=== PATIENT | male | born 1955 | race Caucasian/White ===

== ENCOUNTER 2016-10-24 14:58 | Emergency (ER) | payer OTHER ==
[~2016-10-24] VITALS: Ht 172.7 cm; Wt 97.5 kg
[2016-10-24] MEDS ORDERED: AZELASTINE137 MCG/Ac (15:11)
[2016-10-24] MEDS ORDERED: FLONASE 50 MCG16 GM (15:12)
[2016-10-24] MEDS ORDERED: ASPIRIN 81MG TA81 MG PO (15:12)
[2016-10-24] MEDS ORDERED: PEPCID 20MG TAB20 MG PO (15:13)
--- NOTE | 2016-10-24 15:36 | Emergency Room Report ---
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 N Clinical Suspician of Infection? N Mental Status: 1 - Regular (Normal Baseline) Sepsis Risk:Low Sepsis Risk Have you (or family members/close friends) recently traveled outside the [place]? N If Yes, where/when: Have you had exposure to infectious disease within the past month? N TB? Other? Specify: Fell accidentally this morning, neg LOC, PCP Dr. King ordered L shoulder xray and CT cervical spine, which were read as normal by radiology; patient with intense muscle spasm while in car, and returned to hospital for relief. Took Ibuprofen 600 mg COMPLIANCE REVIEW SPECIALIST. Pain is on the left, with no lito neurological symptoms reported. ALLERGIES Coded Allergies: No Known Allergies (04/25/16) Home Medications Reported Medications AZELASTINE HCL (Azelastine HCl) 137 MCG NA BID #30 ASPIRIN (Aspirin) 81 MG PO DAILY Fluticasone Propionate (Flonase 50 Mcg Nasal [place]) 1 SPRAY NA BID #48 Famotidine (Pepcid 20MG Tablet) 20 MG PO BID History Medical History General CAD? No Angina: No [place]: No Hypertension? No Hyperlipidemia? Yes CHF? No DVT? No PE? No COPD? No Asthma? No Anemia? Yes GERD? No Gastric ulcers? No GI Bleed? No Hernia? No Thyroid Problems? No Hypothyroidism? No CVA? No Seizures? No Diabetes? No Renal Insuffiency? No End Stage Renal Disease? No UTI? No Stones? No BPH? No GB Disease: No Nephritic Syndrome? No Asplenia? No Hepatitis? No Sickle Cell Disease? No Arthritis? No Migraines? No Cataracts? No Glaucoma? No MRSA? No HIV? No TB? No Anxiety? No Depression? No Cancer? No More? No Immunization Hx DT/Tetanus Unknown Surgical Hx Previous Surgery?Y RIGHT KNEE Social History Smoking Hx Smoker: Never Smoker Tobacco: No Are you/the child exposed to second-hand smoke: No Alcohol Alcohol: No Review of Systems All Other Systems Reviewed and Negative Musculoskeletal see HPI Psychiatric/Neurological denies no symptoms reported Physical Exam Vital Signs Vital Signs Date Time Temp Pulse Resp B/P Pulse O2 O2 Flow FiO2 Ox Delivery Rate 10/24 1502 97.9 63 20 159/92 97 General Appearance normal appearance, WD/WN, no apparent distress Neck normal inspection, non-tender, supple, full range of motion Respiratory Status Yes: trachea midline, chest symmetrical, tender on palpation. No: respiratory distress, non tender chest (L latissimus dorsi spasm), use of accessory muscles, pain on inspiration, productive cough. Lung Sounds bilateral: normal breath sounds, lungs clear. Cardiovascular normal exam, regular rate/rhythm, no peripheral edema, no gallop, no JVD, no murmur, no rub, normal peripheral pulses Back no vertebral tenderness, muscle spasm (trigger point, L lat) Extremities normal range of motion, subjective tenderness to shoulder, but no lito tenderness over rotator cuff noted; has good active and passive ROM, fully sensate r/u/m/ax nerves as checked, no asymmetry; clavicle nontender to palpation. Neurologic alert, normal exam, no motor/sensory deficits, oriented x 3 Reflexes Reflexes normal Yes DTR 2+ tricep (R), 2+ tricep (L) Skin intact, normal color, warm/dry Medical Decision Making LABS/Meds/Orders Pt receiving controlled substance in ED? No Results/Orders Current Medication Orders Sig/Kelly Start time Last Medication Dose Route Stop Time Status Admin Cyclobenzaprine HCl 10 MG ONCE ONE 10/24 1545 AC 10/24 PO 10/24 1546 1539 Cyclobenzaprine HCl 0 .STK-MED ONE 10/24 1538 DC PO Progress ED Progress Notes Date 10/24/16 Time 1539 Comment results of L shoulder xray and CT cervical spine reviewed, overall neg acute findings. Departure Departure Time of Disposition 1539 Disposition DC Home or Self Care(routine) Clinical Impression Primary Impression: Spasm of thoracic back muscle Condition STABLE Referrals Bernard King MD (Family) Patient Instructions DI for Musculoskeletal Pain Additional Instructions See Dr. King for follow up in one to two days for recheck; Rx Flexeril; recommend taking Ibuprofen 200 mg by mouth every six hours for the next 24 hours , then switch to plain Tylenol. Discharge Counseling Counseled pt/family regarding diagnosis, test results, medications/RX, home care, follow up needs Prescriptions Current Visit Scripts Cyclobenzaprine Hcl (Flexeril) 5 MG PO TIDP PRN spasm #15 TAB ED Critical Care Critical Care No at 7840
[2016-10-24] MEDS ORDERED: FLEXERIL10 MG PO (15:40)
[2016-10-24 15:50] VITALS: BP 159/92
== END 2016-10-24 15:51 | disposition home or self-care (01) ==
LOC: ER 14:58
DX: M62.830 Muscle spasm of back (principal); W01.0XXA Fall on same level from slipping, tripping and stumbling without subsequent striking against object, initial encounter; Y92.019 Unspecified place in single-family (private) house as the place of occurrence of the external cause

== ENCOUNTER 2017-06-05 06:23 | Inpatient (IN) | payer OTHER ==
[~2017-06-05] VITALS: Ht 172.7 cm; Wt 100.8 kg
[2017-06-05] VITALS (17 sets, daily range): BP systolic 123–171; BP diastolic 61–96
[~2017-06-05 06:23] MED LIST: ASPIRIN 81MG TA81 MG PO; AZELASTINE137 MCG/Ac; FLEXERIL10 MG PO; FLONASE 50 MCG16 GM; PEPCID 20MG TAB20 MG PO
[2017-06-05] MEDS ORDERED: VIMOVO 20 MG-501 TCP PO (06:41)
--- NOTE | 2017-06-05 06:54 | Emergency Room Report ---
History of Present Illness Time Seen by 0600 Presenting Problem in Triage Pt arrived:Walked Presenting Problem:DIFFUSE ABDOMINAL PAIN LAST NIGHT WITH HOT FLASHES, VOMITING AND DIARRHEA. THIS MORNING PAIN IS RLQ. 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 Y Clinical Suspician of Infection? Y Mental Status: 1 - Regular (Normal Baseline) Sepsis Risk:Low Sepsis Risk Have you (or family members/close friends) recently traveled outside the [place]? N If Yes, where/when: Have you had exposure to infectious disease within the past month? N TB? Other? Specify: Source patient, RN notes reviewed, family, old records Exam Limitations no limitations Comment pt with progressive rt lower abd pain with nausea and dec po Cardiac Chest Pain Chest pain indicative of cardiac No Timing/Duration this evening Severity moderate ALLERGIES Coded Allergies: No Known Allergies (04/25/16) Home Medications Active Scripts Cyclobenzaprine Hcl (Flexeril) 5 MG PO TIDP PRN spasm #15 TAB Prov: 10/24/16 Reported Medications AZELASTINE HCL (Azelastine HCl) 137 MCG NA BID #30 ASPIRIN (Aspirin) 81 MG PO DAILY Fluticasone Propionate (Flonase 50 Mcg Nasal [place]) 1 SPRAY NA BID #48 Famotidine (Pepcid 20MG Tablet) 20 MG PO BID NAPROXEN/ESOMEPRAZOLE MAG (Vimovo Dr 500-20 MG Tablet) 1 TCP PO DAILY #60 History Medical History General CAD? No Angina: No [place]: No Hypertension? No Hyperlipidemia? Yes CHF? No DVT? No PE? No COPD? No Asthma? No Anemia? Yes GERD? No Gastric ulcers? No GI Bleed? No Hernia? No Thyroid Problems? No Hypothyroidism? No CVA? No Seizures? No Diabetes? No Renal Insuffiency? No End Stage Renal Disease? No UTI? No Stones? No BPH? No GB Disease: No Nephritic Syndrome? No Asplenia? No Hepatitis? No Sickle Cell Disease? No Arthritis? No Migraines? No Cataracts? No Glaucoma? No MRSA? No HIV? No TB? No Anxiety? No Depression? No Cancer? No More? No Immunization Hx Ped.Immunizations UTD No DT/Tetanus Unknown Surgical Hx Previous Surgery?Y RIGHT KNEE Social History Smoking Hx Smoker: Never Smoker Tobacco: No Alcohol Alcohol: No Drugs none Review of Systems All Other Systems Reviewed and Negative Constitutional denies fever Eyes denies drainage ENT denies: ear discharge, epistaxis, throat pain. Respiratory denies cough, denies shortness of breath, denies wheezing Cardiovascular denies chest pain, denies syncope Gastrointestinal see HPI, abdominal pain, nausea, vomiting Genitourinary denies: dysuria, frequency, hesitancy, hematuria. Musculoskeletal denies back pain, denies joint pain, denies joint swelling, denies neck pain Skin denies rash Psychiatric/Neurological denies headache, denies seizure Physical Exam Vital Signs Vital Signs Date Time Temp Pulse Resp B/P Pulse O2 O2 Flow FiO2 Ox Delivery Rate 06/05 704 20 06/05 06 99.2 66 14 171/61 98 - WBC >12,000 or <4,000 or 10% bands? 2 or more SIRS Criteria Met? B/P:171/61 MAP:97 Creatinine >2.0? UA output<0.5ml/kg/hr for 2 hrs? Platelet count >100,000? Lactate >2.0mmol/1? INR >1.2 or PTT > than 60 sec? Evidence of Organ Dysfunction? Provider documented clinical suspician of infection? Y Sepsis Criteria Count: 1 Sepsis Risk: Low Sepsis Risk General Appearance no apparent distress Eye Exam - bilateral eye PERRL, bilateral eye EOMI Ear, Nose, Throat normal ENT inspection Neck supple Respiratory Status No: respiratory distress. Lung Sounds bilateral: lungs clear. Cardiovascular regular rate/rhythm Peripheral Pulses Pulses normal Yes Gastrointestinal soft, no organomegaly, no pulsatile mass, no guarding, no rebound, tenderness Extremities normal inspection Strength 4 Upper Ext (L), 4 Upper Ext (R), 4 Lower Ext (L), 4 Lower Ext (R) Neurologic alert, threat monitoring analyst II-XII nml as tested, no motor/sensory deficits Reflexes Reflexes normal No Mental status normal mood/affect Skin intact Medical Decision Making LABS/Meds/Orders Pt receiving controlled substance in ED? No Results/Orders Current Medication Orders Sig/Kelly Start time Last Medication Dose Route Stop Time Status Admin Morphine Sulfate 4 MG ONCE ONE 06/05 700 DC 06/05 IV 06/05 701 07 Promethazine HCl 12.5 MG ONCE ONE 06/05 700 DC 06/05 IV 06/05 0701 0704 Promethazine HCl 0 .STK-MED ONE 06/05 700 DC .ROUTE Sodium Chloride 25 ML ONCE ONE 06/05 700 DC 06/05 IV 06/05 0714 0705 Morphine Sulfate 0 .STK-MED ONE 06/05 659 DC .ROUTE Sodium Chloride 25 ML .STK-MED ONE 06/05 659 DC IV Sodium Chloride 10 ML PRN PRN 06/05 630 AC IV 06/06 630 Orders Procedure Date/time Status DIET-NOTHING BY MOUTH 06/05 B Active Decision to admit 06/[address] SCAN REQ 06/05 630 Complete IV SALINE LOCK 06/05 630 Active URINALYSIS/COMPLETE 06/05 630 Active COMPLETE METABOLIC PANEL 06/05 630 Active CBC WITH AUTO DIFF 06/[address] ABD & PELVIS W/O CONTRAST 06/05 UNK Active XRAY/CT/US XRAY/CT/US CT abdomen, pelvis CT interpretation by discussed w/radiologist Time results known: 719 CT Results abnormal (acute appenditis) Departure Departure Time of Disposition 07 Disposition Still a Patient Clinical Impression Primary Impression: Appendicitis, acute Qualifiers: Acute appendicitis type: with localized peritonitis Qualified Code: K35.3 - Acute appendicitis with localized peritonitis Condition STABLE Referrals Bernard Norwood MD (Family) discussed with dr norwood and dr sharma ED Critical Care Critical Care No at 0721
--- NOTE | 2017-06-05 07:22 | RADIOLOGY REPORT PS360 ---
CT ABD PELVIS W/O CONTRAST CLINICAL INDICATION: Right lower quadrant pain with fever constipation and diarrhea ABD PAIN ORDERING PHYSICIAN: Macarena Maharaj MD PATIENT AGE: 62 years COMPARISON: None TECHNIQUE: Axial images obtained with sagittal and coronal reformats. PROCEDURE: Oral Contrast: None IV Contrast: None . FINDINGS: There is a nonspecific small nodular opacity left lung base posteriorly at 4 mm. Calcified granulomas are also present in the left lower lobe. The liver, gallbladder, spleen, adrenal glands, and pancreas have an unremarkable unenhanced CT appearance. No renal calculi or hydronephrosis. The appendix is enlarged. There is stranding of the periappendiceal fat. Gas is present in the proximal to mid aspect of the appendix surrounding an appendicolith. Gangrenous appendicitis is considered. There is thickening of the lateral, fascia adjacent to the appendix. No free air. No obvious abscess. There is a minimal amount fluid in the pelvis. There is diverticulosis of the sigmoid colon but no evidence of diverticulitis. No acute bony anomalies are evident. Bilateral pars defect is present at L5 with 4 mm anterolisthesis of L5. IMPRESSION: 1. Acute appendicitis. Gas is present in the central aspect of the appendix running appendicolith suspicious for gangrenous appendicitis. No obvious abscess or free air. 2. Diverticulosis. 3. Nonspecific 4 mm nodular opacity left lung base posteriorly. Consider 6 month follow-up
[2017-06-05 07:32] LABS: HEMOGLOBIN 15.5 g/dL (14.1-18.0); LYMPH # 1.1 K/mm3 (0.7-4.5)
[2017-06-05 07:38] LABS: URINE BILIRUBIN - DIPSTICK NEGATIVE (NEG); URINE BLOOD TRACE-INTACT (NEG)
[2017-06-05 07:42] LABS: URINE SQUAMOUS CELLS OCC #/hpf (OCC)
[2017-06-05 07:52] LABS: NEUTROPHILS 89 % (42-76)
--- NOTE | 2017-06-05 08:31 | HISTORY AND PHYSICAL REPORT ---
History of Present Illness Chief Complaint: Abdominal Pain History of Present Illness: Patient is a 62-year-old white male. In the morning of 06/04/17 he developed upper abdominal pain described as a "stomachache". 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 He presented to the emergency department at [facility] where he was seen and evaluated and had a CT scan revealing findings consistent with acute appendicitis. Surgical consultation was obtained. Past Medical History Reports: GERD. Surgical History Previous Surgery?Y RIGHT KNEE Allergies Coded Allergies: No Known Allergies (04/25/16) Medications: Active Scripts Cyclobenzaprine Hcl (Flexeril) 5 MG PO TIDP PRN spasm #15 TAB Prov: 10/24/16 Reported Medications AZELASTINE HCL (Azelastine HCl) 137 MCG NA BID #30 ASPIRIN (Aspirin) 81 MG PO DAILY Fluticasone Propionate (Flonase 50 Mcg Nasal [place]) 1 SPRAY NA BID #48 Famotidine (Pepcid 20MG Tablet) 20 MG PO BID NAPROXEN/ESOMEPRAZOLE MAG (Vimovo Dr 500-20 MG Tablet) 1 TCP PO DAILY #60 Smoking Hx Tobacco: No Smoker: Never Smoker Type: N/A Packs/day: N/A Are you/the child exposed to second-hand smoke: No Alcohol Alcohol: No Hx of Drug Use Drug Use? No Review of Systems Constitutional No: chills. Skin No: bruising. Immune/allergy Positive for: allergy. No: anaphalaxis. Eyes No: vision loss. ENT No: hearing loss. Respiratory No: shortness of air. Cardiovascular No: chest pain. GI Positive for: abdomen, anorexia. (male) No: hematuria. Musculoskeletal No: extremity swelling. Heme No: bleeding. Endocrine No: cold intolerance. Neurological No: change in LOC. Psychiatric No: change in mental status. Physical Exam Exam General appearance no acute distress Respiratory clear to auscultation Cardiovascular normal heart sounds Abdomen soft Findings/Data He has some diffuse lower abdominal subjective tenderness with some tenderness with voluntary guarding focally in the RIGHT lower quadrant. Dx/assessment/plan Problem List 1. Appendicitis, acute Code status: full code Plan: Plan for emergent appendectomy. Attempt laparoscopic with possible open procedure. at 0831
--- NOTE | 2017-06-05 08:31 | HISTORY AND PHYSICAL REPORT ---
History of Present Illness Chief Complaint: Abdominal Pain History of Present Illness: Patient is a 62-year-old white male. In the morning of 06/04/17 he developed upper abdominal pain described as a "stomachache". 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 He presented to the emergency department at [facility] where he was seen and evaluated and had a CT scan revealing findings consistent with acute appendicitis. Surgical consultation was obtained. Past Medical History Reports: GERD. Surgical History Previous Surgery?Y RIGHT KNEE Allergies Coded Allergies: No Known Allergies (04/25/16) Medications: Active Scripts Cyclobenzaprine Hcl (Flexeril) 5 MG PO TIDP PRN spasm #15 TAB Prov: 10/24/16 Reported Medications AZELASTINE HCL (Azelastine HCl) 137 MCG NA BID #30 ASPIRIN (Aspirin) 81 MG PO DAILY Fluticasone Propionate (Flonase 50 Mcg Nasal [place]) 1 SPRAY NA BID #48 Famotidine (Pepcid 20MG Tablet) 20 MG PO BID NAPROXEN/ESOMEPRAZOLE MAG (Vimovo Dr 500-20 MG Tablet) 1 TCP PO DAILY #60 Smoking Hx Tobacco: No Smoker: Never Smoker Type: N/A Packs/day: N/A Are you/the child exposed to second-hand smoke: No Alcohol Alcohol: No Hx of Drug Use Drug Use? No Review of Systems Constitutional No: chills. Skin No: bruising. Immune/allergy Positive for: allergy. No: anaphalaxis. Eyes No: vision loss. ENT No: hearing loss. Respiratory No: shortness of air. Cardiovascular No: chest pain. GI Positive for: abdomen, anorexia. (male) No: hematuria. Musculoskeletal No: extremity swelling. Heme No: bleeding. Endocrine No: cold intolerance. Neurological No: change in LOC. Psychiatric No: change in mental status. Physical Exam Exam General appearance no acute distress Respiratory clear to auscultation Cardiovascular normal heart sounds Abdomen soft Findings/Data He has some diffuse lower abdominal subjective tenderness with some tenderness with voluntary guarding focally in the RIGHT lower quadrant. Dx/assessment/plan Problem List 1. Appendicitis, acute Code status: full code Plan: Plan for emergent appendectomy. Attempt laparoscopic with possible open procedure. at 0831
--- NOTE | 2017-06-05 10:29 | Operative Note ---
Surgeon/Diagnoses Surgeon/Analytics Architect(s) Date of procedure: 06/05/17 Surgeon: Ignacio Ccaeres Diagnoses Pre-op diagnosis: Acute appendicitis Post-op diagnosis Same Procedure Procedure Procedure: Laparoscopic appendectomy Indications: PAULIE MIRANDA is a 62 year-old Male with a history of upper abdominal pain beginning yesterday morning on 06/04/17. This transiently improved yesterday afternoon but then the patient awoke this morning early with severe pain localized to the RIGHT lower quadrant. Presented to the emergency department where he underwent CT scan without contrast which revealed findings of acute appendicitis. Surgical consultation was obtained and plan was made for appendectomy. Findings: Partially retrocecal inflamed nonperforated acute appendicitis showing some early necrosis Procedure Description: Consent was obtained and patient was taken to the operating room. He was given preoperative intravenous antibiotics. In the operating room he was placed in a supine position. Romo catheter was placed. Abdomen was prepped and draped in the standard surgical fashion. Subumbilical skin incision was made and while performing abdominal wall lift Veress needle was inserted. CO2 pneumoperitoneum was achieved 15 mmHg. 10/12 mm optical trocar was inserted at the umbilicus. Intracranial contents were visualized. 5 mm trocar was inserted in the suprapubic location. 5 mm trocar was inserted in the RIGHT upper abdomen. 10 mm laparoscope was replaced with 5 mm 30 degree laparoscope inserted in the RIGHT upper abdominal trocar site. There was some focal fibrinopurulent exudate at the tip of the cecum. There was some edema within the tissues. Ileum was swept medially and dissection was carried out. The tip of the appendix was identified posterior to the ileum. Appendix was identified in a partially retrocecal location. With blunt dissection mobilizing the ileum medially and partially dividing some of the peritoneal attachments to the cecum laterally he appendix was identified. It was markedly thickened and tense enlarged. It was grasped with a [place]. Dissection was carried out. Upon dissecting the appendix there was some minimal unavoidable spillage of purulent feculent fluid which was immediately suctioned free. Dissection was carried down to the base of the appendix. These all appendix was divided with Jd ultrasonic harmonic kaylee with care taken to coagulate the appendiceal artery. Appendix was dividedwith an endoscopic MILY linear cutting stapling device. Appendix was placed within an Endo Catch retrieval device and removed from the peritoneal cavity via the umbilical trocar site which required some extension of the fascial incision for delivery. Appendiceal stump was inspected for hemostasis and integrity. There was a couple of millimeters of residual appendiceal stump. A couple of 0 PDS Endoloops were then placed on the appendiceal stump to prevent "stump appendicitis". Pericecal location was irrigated and aspirated until clear. Trochars were removed as CO2 pneumoperitoneum was evacuated. Fascia at the umbilicus was closed with a 0 Vicryl [id number] suture. Local anesthetic was infiltrated. Skin incisions were closed 4-0 Monocryl in a subcuticular fashion. Steri-Strips and clean dry sterile dressings were applied. EBL (ml): 25 Anesthesia: GETA Specimens: Appendix Disposition Disposition: To PACU at 7085
--- NOTE | 2017-06-05 10:29 | Anesthesia Record ---
Anesthesia Record Part II Discharge time: 1055 Destination: Same day surgery PACU nurse assessment review? Yes Patient is: Stable Anesthesia complications? No at 8963
--- NOTE | 2017-06-05 10:29 | Anesthesia Record ---
Anesthesia Record Part I Total IV fluids: 800 EBL (ml): 10 Urine Output: 125 B/P: 166/73 % SaO2: 97 Pulse: 73 Resps: 18 Temp: 97.8 Patient is: Nasal O2, Stable Stable to PACU at: 1025 at 1028
[2017-06-05] MEDS ORDERED: CLARITIN 10MG T10 MG PO (11:16)
[2017-06-05 11:23] LABS: URINE BILIRUBIN - DIPSTICK NEGATIVE (NEG); URINE BLOOD 3+ (NEG)
[2017-06-05 11:32] LABS: URINE SQUAMOUS CELLS OCC #/hpf (OCC)
--- NOTE | 2017-06-05 18:11 | ACUTE CARE PROGRESS NOTE (QUA) ---
Progress Notes Subjective Date 06/05/17 Time 1809 Note Patient examined on second floor after successful appendectomy. Postoperative course, but gross hematuria. Urology consult reviewed and appreciated. Patient now urinate a Tea colored urine. No pain. Of note has no abdominal tenderness. Lungs are clear, heart rate regular. Objective Findings Last VS-Temp:97.8 B/P:131/71 Pulse:65 Resp:15 SaO2:95 ROOM AIR Last weight lbs:222 oz:5 K.840 Method:Bed Scales Assessment/Plan Problem List 1. Appendicitis, acute Qualifiers: Acute appendicitis type: with localized peritonitis Qualified Code: K35.3 - Acute appendicitis with localized peritonitis Patient condition Improving Plan: continue current care This inpt stay is expected to cross 2 MNs from start of care No at 1810
[2017-06-06 00:02] VITALS: BP 142/68
[2017-06-06 03:40] VITALS: BP 141/67
[2017-06-06 06:58] LABS: HEMOGLOBIN 14.3 g/dL (14.1-18.0); LYMPH # 1.6 K/mm3 (0.7-4.5)
--- NOTE | 2017-06-06 07:14 | SURGEON PROGRESS NOTE ---
Subjective data Subjective data: PAULIE MIRANDA is a 62 M .Patient denies complaint of nausea and vomitting. He reports his last pain level as 0 on a 0-10 pain scale. Feels much better. Tolerating full liquids without difficulty. Hematuria resolved. Assessment findings Assessment Exam General appearance: normal appearance, alert Respiratory: clear to auscultation ABD: soft Patient plan Plan: Advance diet, Antibiotics at 0714
--- NOTE | 2017-06-06 08:25 | ACUTE CARE PROGRESS NOTE (QUA) ---
Progress Notes Subjective Date 06/06/17 Time 0823 Note Patient feels better, had fever yesterday, now defervesced. Able to walk around without problems except for a little bit of surgical pain. Lungs are clear, excellent air expansion bilaterally, no edema. Objective Findings Last VS-Temp:98.6 B/P:141/67 Pulse:77 Resp:18 SaO2:95 OXYGEN Last weight lbs:222 oz:5 K.840 Method:Bed Scales Assessment/Plan Problem List 1. Appendicitis, acute Qualifiers: Acute appendicitis type: with localized peritonitis Qualified Code: K35.3 - Acute appendicitis with localized peritonitis Patient condition Improving Plan: continue current care This inpt stay is expected to cross 2 MNs from start of care No at 0824
[2017-06-06 08:30] VITALS: BP 127/71; BP 139/70
[2017-06-06 09:42] VITALS: BP 127/71
--- NOTE | 2017-06-06 13:19 | ACUTE CARE PROGRESS NOTE (QUA) ---
Progress note: - Patient had episode of pain relieved with morphine. Single episode of temperature elevation once, resolved with Tylenol. Abdomen is soft. Encourage incentive spirometry. Ambulate later. at 8851
[2017-06-06 16:30] VITALS: BP 121/77
[2017-06-06 19:41] VITALS: BP 117/65
[2017-06-07 04:17] VITALS: BP 150/74
[2017-06-07 06:45] LABS: LYMPH # 1.8 K/mm3 (0.7-4.5); LYMPH % 22.5 % (10-50)
[2017-06-07 07:13] LABS: HEMOGLOBIN 12.9 g/dL (14.1-18.0)
[2017-06-07 07:42] VITALS: BP 136/87
--- NOTE | 2017-06-07 07:42 | ACUTE CARE PROGRESS NOTE (QUA) ---
Progress Notes Subjective Date 06/07/17 Time 0741 Note Patient feels good. Had low-grade temperature elevations through the night. Lungs are clear, heart rate regular, abdomen soft, no edema. No rash. No urinary bleeding noted. Objective Findings Last VS-Temp:98.5 B/P:150/74 Pulse:70 Resp:18 SaO2:95 ROOM AIR Last weight lbs:222 oz:5 K.840 Method:Bed Scales Assessment/Plan Problem List 1. Appendicitis, acute Qualifiers: Acute appendicitis type: with localized peritonitis Qualified Code: K35.3 - Acute appendicitis with localized peritonitis 2. Gross hematuria Patient condition Improving Plan: continue current care, if surgery clears patient I'm okay with discharging patient. Would recommend discharge on by mouth Augmentin 875 twice daily for 7 days to cover intra-abdominal issues and his Romo catheterization incident. This inpt stay is expected to cross 2 MNs from start of care No at 0742
[2017-06-07 08:05] VITALS: BP 136/87
--- NOTE | 2017-06-07 08:29 | SURGEON PROGRESS NOTE ---
Subjective data Subjective data: PAULIE MIRANDA is a 62 M .Patient denies complaint of nausea and vomitting.He reports his last pain level as 0 on a 0-10 pain scale. Doing well. No complaints. Tolerating bland diet. No nausea, no hematuria, no significant pain. Assessment findings Assessment Exam General appearance: normal appearance, alert ABD: soft Patient plan Plan: DISCHARGE at [id number]
--- NOTE | 2017-06-07 08:46 | DISCHARGE SUMMARY STANDARD ---
Demographics Admit date: 06/04/17 Discharge date: 06/07/17 History of present illness History of present illness 62-year-old white male with a nonsignificant past medical history admitted through emergency department for appendicitis. Please see surgical H&P, operative notes, etc. for details. Hospital Course Hospital Course: Patient was admitted, taken to operating room. 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 Unfortunately patient had Romo catheter placed during the operation that cause some significant hematuria on the second placement attempt. Urology was consulted and their notes are appreciated. Patient placed on Unasyn because of hematuria and significant necrosis of appendix. Patient did well, defervesced over the next couple of days. This morning essentially normal exam, discharged home with Augmentin and surgical followup. Discharge diagnoses Problem List 1. Appendicitis, acute 2. Gross hematuria Medications Medications: Discharge meds are as noted. Follow up Follow up in office in: 5 DAYS with: Ignacio Caceres MD at [id number]
[2017-06-07] MEDS ORDERED: AUGMENTIN 875-1 EACH PO (08:47)
[2017-06-07 09:23] VITALS: BP 136/87
== END 2017-06-07 12:05 | disposition home or self-care (01) | DRG 340 ==
LOC: ER 06:23 → 2ND 07:21 → ER 07:21 → 2ND 07:21 → ICU 07:25 → 2ND 07:57 → ICU 07:59 → 2ND 11:04
PROVIDERS: Emergency Medicine; Surgery
PROC: 0DTJ4ZZ Resection of Appendix, Percutaneous Endoscopic Approach (ICD-10-PCS; principal; 2017-06-05 07:45)
DX: K35.3 Acute appendicitis with localized peritonitis (principal); R31.0 Gross hematuria
CPT/HCPCS: J0131; J2405; J2710

== ENCOUNTER → 2017-07-17 | Outpatient (CLI) | payer OTHER ==
[~2017-07-17] MED LIST changes: +AUGMENTIN 875-1 EACH PO; +CLARITIN 10MG T10 MG PO; +VIMOVO 20 MG-501 TCP PO
--- NOTE | 2017-07-17 09:45 | RADIOLOGY REPORT PS360 ---
HAND-LT-3 VIEWS HISTORY: LT HAND PAIN ORDERING PHYSICIAN: TISHA HWANG MD PATIENT AGE: 62 years COMPARISON: None FINDINGS: No fracture or dislocation. No lytic or blastic change. There is normal mineralization. The joint spaces are well-preserved. No significant degenerative/arthritic changes. No erosive changes evident. There are mild osteoarthritic changes of the distal radial ulnar joint and radiocarpal joint. IMPRESSION: 1. Negative left hand. 2. 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
== END ==
LOC: RAD 08:45
DX: M79.642 Pain in left hand (principal)